=== PATIENT | female | born 1965 | race American Indian/Alaskan Native ===

== ENCOUNTER 2019-12-08 14:05 | Emergency (ER) | payer BC, SELFPAY ==
--- NOTE | 2019-12-08 14:26 | Event Note ---
ED Screening Note ED Screening Note: PMH CVA RECENT HTN DM METFORMIN LISINOPRIL METOPROLOL NO BLOOD THINNERS BS THIS AM 125 ATE BREAKFAST THEN FELL This initial assessment/diagnostic orders/clinical plan/treatment(s) is/are subject to change based on patients health status, clinical progression and re- assessment by fellow clinical providers in the ED. Further treatment and workup at subsequent clinical providers discretion. Patient/guardian urged not to elope from the ED as their condition may be serious if not clinically assessed and managed. Initial orders include: EVAL ACC
[2019-12-08 14:27] VITALS: BP 160/69
--- NOTE | 2019-12-08 16:33 | Cat Scan Report ---
CT head/brain wo con INDICATION / CLINICAL INFORMATION: 54 years Female; FALL. TECHNIQUE: Routine CT head without contrast. All CT scans at this location are performed using CT dos e reduction for ALARA by means of automated exposure control. COMPARISON: MRI - 10/04/2018 FINDINGS: BRAIN / INTRACRANIAL CONTENTS: Multiple areas of loss of tijerina/white differentiation are seen, which a ppear to be chronic in age, when compared with prior. The most prevalent finding seen in the anterior parietal lobe on the left, which also involves the posterior left frontal lobe more superiorly. Otherwise, no acute hemorrhage, mass effect, midline shift, hydrocephalus, or acute, large territori al infarct. Mild cerebral atrophy. There are moderate areas of decreased attenuation in the white matter of the cerebral hemispheres. Th adalberto are nonspecific findings and may be related to microangiopathy (hypertension, diabetes, atheroscl erosis), given the patient's age. It might be difficult to evaluate for small areas of ischemia witho ut diffusion imaging by MRI. CRANIOCERVICAL JUNCTION: No significant abnormality. ORBITS: No significant abnormality of visualized orbits. SINUSES / MASTOIDS: No significant abnormality the visualized paranasal sinuses or mastoid air cells. ADDITIONAL FINDINGS: Small subgaleal hematoma suggested in the right frontoparietal region. There are no signs of underlying calvarial fracture appreciated. Atherosclerotic disease is seen in the anterior and posterior circulation. IMPRESSION: 1. No focal mass, intracranial hemorrhage, hydrocephalus, or acute, large territorial infarct. Signer Name: Matthew Delong MD, III Signed: 12/08/2019 4:28 PM Workstation Name: [id number]
[2019-12-08] MEDS ORDERED: HYDROcodone/ACETAMINOPHEN 5-325 MG TAB PO ONE (16:44)
--- NOTE | 2019-12-08 16:44 | Emergency Department Report ---
ED Fall HPI - General Chief Complaint: Fall Stated Complaint: FALL Time Seen by Provider: 12/08/19 14:25 Source: patient Mode of arrival: Wheelchair - History of Present Illness Initial Comments: 54-year-old -[place]os[place] female patient with history of stroke, diabetes, and hypertension presents with complaints of his had a head injury and right arm pain after a fall x today. States she was knocked off balance when her dog jumped on her. She states she hit her head on the wall and fell onto her right arm. She denies any loss of consciousness, dizziness, slurred speech, vision changes, or nausea/vomiting. She has permanent right-sided weakness due to her previous stroke./10 in severity. She denies any chest pain or shortness of breath. Fall was witnessed by her daughter. Patient is on Plavix Complaint: fall Fall From: standing Fall Witnessed: yes, by family Place Fall Occurred: home - Related Data Home Medications Medication Instructions Recorded Confirmed Last Taken Aspirin EC [Halfprin EC] 81 mg PO QDAY 10/07/18 10/07/18 Unknown Gabapentin [Neurontin] 300 mg PO Q8HR 10/07/18 10/07/18 Unknown amLODIPine [Norvasc] 10 mg PO DAILY 10/07/18 10/07/18 Unknown metFORMIN [Glucophage] 500 mg PO BID 10/07/18 10/07/18 Unknown Previous Rx's Medication Instructions Recorded Last Taken Type Aspirin EC [Halfprin EC] 81 mg PO QDAY #30 tablet. 10/06/18 Unknown Rx Gabapentin 300 mg PO TID #90 10/06/18 Unknown Rx Pravastatin Sodium [Pravachol] 40 mg PO HS #30 tablet 10/06/18 Unknown Rx metFORMIN [Glucophage] 500 mg PO BID #60 tablet 10/06/18 Unknown Rx Aspirin EC [Halfprin EC] 81 mg PO QDAY #30 tablet 10/12/18 Unknown Rx AtorvaSTATin [Lipitor] 40 mg PO QHS #30 tablet 10/12/18 Unknown Rx Baclofen [Lioresal] 10 mg PO TID #30 tablet 10/12/18 Unknown Rx Clopidogrel [Plavix] 75 mg PO QDAY #30 tablet 10/12/18 Unknown Rx Diabetic Supplies,Miscell [Enlite 1 each MC BID #1 miscell 10/12/18 Unknown Rx Serter] Insulin NPH/Regular [NovoLIN 70/30] 15 unit SUB-Q BIDDIAB #1 vial 10/12/18 Unknown Rx Metoprolol Xl [Metoprolol 50 mg PO QDAY #30 tablet 10/12/18 Unknown Rx SUCCINATE ER TAB] lisinopriL [Zestril TAB] 5 mg PO QDAY #30 tablet 10/12/18 Unknown Rx Allergies Allergy/AdvReac Type Severity Reaction Status Date / Time No Known Allergies Allergy Verified 10/08/18 12:17 ED Review of Systems ROS: Stated complaint: FALL Other details as noted in HPI Comment: All other systems reviewed and negative Musculoskeletal: as per HPI Neurological: headache ED Past Medical Hx - Past Medical History Hx Hypertension: Yes Hx Congestive Heart Failure: No Hx Diabetes: Yes Hx Arthritis: Yes (RA) Hx Asthma: No Hx COPD: No Hx HIV: No Additional medical history: carpel tunnel,H/O FALLS- SORES ON BLL IN VARIOUS STAGES OF HEALING,OLD AND NEW - Social History Smoking Status: Never Smoker Substance Use Type: None - Medications Home Medications: Home Medications Medication Instructions Recorded Confirmed Last Taken Type Aspirin EC [Halfprin EC] 81 mg PO QDAY #30 tablet. 10/06/18 Unknown Rx Gabapentin 300 mg PO TID #90 10/06/18 Unknown Rx Pravastatin Sodium [Pravachol] 40 mg PO HS #30 tablet 10/06/18 Unknown Rx metFORMIN [Glucophage] 500 mg PO BID #60 tablet 10/06/18 Unknown Rx Aspirin EC [Halfprin EC] 81 mg PO QDAY 10/07/18 10/07/18 Unknown History Gabapentin [Neurontin] 300 mg PO Q8HR 10/07/18 10/07/18 Unknown History amLODIPine [Norvasc] 10 mg PO DAILY 10/07/18 10/07/18 Unknown History metFORMIN [Glucophage] 500 mg PO BID 10/07/18 10/07/18 Unknown History Aspirin EC [Halfprin EC] 81 mg PO QDAY #30 tablet 10/12/18 Unknown Rx AtorvaSTATin [Lipitor] 40 mg PO QHS #30 tablet 10/12/18 Unknown Rx Baclofen [Lioresal] 10 mg PO TID #30 tablet 10/12/18 Unknown Rx Clopidogrel [Plavix] 75 mg PO QDAY #30 tablet 10/12/18 Unknown Rx Diabetic Supplies,Miscell [Enlite 1 each MC BID #1 miscell 10/12/18 Unknown Rx Serter] Insulin NPH/Regular [NovoLIN 70/30] 15 unit SUB-Q BIDDIAB #1 vial 10/12/18 Unknown Rx Metoprolol Xl [Metoprolol 50 mg PO QDAY #30 tablet 10/12/18 Unknown Rx SUCCINATE ER TAB] lisinopriL [Zestril TAB] 5 mg PO QDAY #30 tablet 10/12/18 Unknown Rx ED Physical Exam - General Limitations: No Limitations General appearance: alert, in no apparent distress - Expanded Head Exam Expanded Head exam: Present: hematoma (on right side of forehead) - Eye Eye exam: Present: normal appearance, PERRL - Neck Neck exam: Present: normal inspection, full ROM. Absent: tenderness - Respiratory Respiratory exam: Present: normal lung sounds bilaterally. Absent: respiratory distress - Cardiovascular Cardiovascular Exam: Present: regular rate, normal rhythm. Absent: systolic murmur, diastolic murmur, rubs, gallop - GI/Abdominal GI/Abdominal exam: Present: soft. Absent: tenderness - Extremities Exam Extremities exam: Present: other (permanent right sided weakness due to stroke. Tenderness to palpation over distal humerus.). Absent: pedal edema - Back Exam Back exam: Present: normal inspection, full ROM. Absent: tenderness - Neurological Exam Neurological exam: Present: alert, oriented X3, normal gait - Psychiatric Psychiatric exam: Present: normal affect, normal mood - Skin Skin exam: Present: warm, dry, intact, normal color. Absent: rash, ecchymosis ED Course Vital Signs 12/08/19 12/08/19 14:26 15:21 Temperature 98.1 F Pulse Rate 70 Respiratory 20 17 Rate Blood Pressure 160/69 O2 Sat by Pulse 99 Oximetry ED Medical Decision Making - Radiology Data Radiology results: report reviewed CT head/brain wo con INDICATION / CLINICAL INFORMATION: 54 years Female; FALL. TECHNIQUE: Routine CT head without contrast. All CT scans at this location are performed using CT dose reduction for ALARA by means of automated exposure control. COMPARISON: MRI - 10/04/2018 FINDINGS: BRAIN / INTRACRANIAL CONTENTS: Multiple areas of loss of tijerina/white differentiation are seen, which appear to be chronic in age, when compared with prior. The most prevalent finding seen in the anterior parietal lobe on the left, which also involves the posterior left frontal lobe more superiorly. Otherwise, no acute hemorrhage, mass effect, midline shift, hydrocephalus, or acute, large territorial infarct. Mild cerebral atrophy. There are moderate areas of decreased attenuation in the white matter of the cerebral hemispheres. These are nonspecific findings and may be related to microangiopathy (hypertension, diabetes, atherosclerosis), given the patient's age. It might be difficult to evaluate for small areas of ischemia without diffusion imaging by MRI. CRANIOCERVICAL JUNCTION: No significant abnormality. ORBITS: No significant abnormality of visualized orbits. SINUSES / MASTOIDS: No significant abnormality the visualized paranasal sinuses or mastoid air cells. ADDITIONAL FINDINGS: Small subgaleal hematoma suggested in the right frontoparietal region. There are no signs of underlying calvarial fracture appreciated. Atherosclerotic disease is seen in the anterior and posterior circulation. IMPRESSION: 1. No focal mass, intracranial hemorrhage, hydrocephalus, or acute, large territorial infarct. - Medical Decision Making 54-year-old -[place] female patient with history of stroke, diabetes, and hypertension presents with complaints of his had a head injury and right arm pain after a fall x today. States she was knocked off balance when her dog jumped on her. CT head is negative for acute abnormalities. Vitals are stable. Humeral x-ray is negative. Patient has normal gait. Patient is stable for discharge home and follow-up with her primary care provider. Discussed monitoring patient closely for the next 24 hours and strict return precautions in detail with patient and patient's daughter who both state understanding. Critical care attestation.: If time is entered above; I have spent that time in minutes in the direct care of this critically ill patient, excluding procedure time. ED Disposition Clinical Impression: Contusion of bone Fall Qualifiers: Encounter type: initial encounter Qualified Code(s): W19.XXXA - Unspecified fall, initial encounter Head injury Qualifiers: Encounter type: initial encounter Qualified Code(s): S09.90XA - Unspecified injury of head, initial encounter Disposition: DC-01 TO HOME OR SELFCARE Is pt being admited?: No Condition: Stable Instructions: Fall Prevention for Older Adults (ED), Minor Head Injury (ED) Referrals: PRIMARY CARE, [Referring] - 3-5 Days
--- NOTE | 2019-12-08 17:20 | XRay Report ---
Right humerus-2 views INDICATION: distal humeral pain after fall. COMPARISON: None. IMPRESSION: The elbow/distal humeral epiphysis is not adequately evaluated with this technique. Othe rwise no acute fracture identified. Degenerative changes in the elbow and shoulder. Signer Name: Eleuterio Hoyos MD Signed: 12/08/2019 5:15 PM Workstation Name: [id number]
== END 2019-12-08 17:56 | disposition home or self-care (01) ==
LOC: ED 14:05
DX: S40.021A Contusion of right upper arm, initial encounter (principal); S00.83XA Contusion of other part of head, initial encounter; I10 Essential (primary) hypertension; E11.9 Type 2 diabetes mellitus without complications; Z79.899 Other long term (current) drug therapy; Z86.73 Personal history of transient ischemic attack (TIA), and cerebral infarction without residual deficits; W18.39XA Other fall on same level, initial encounter; Y93.89 Activity, other specified; Y92.89 Other specified places as the place of occurrence of the external cause; Y99.8 Other external cause status
CPT/HCPCS: 70450

== ENCOUNTER 2020-04-21 14:05 | Emergency (ER) | payer SELFPAY ==
[2020-04-21 14:46] VITALS: BP 177/78
--- NOTE | 2020-04-21 14:54 | Emergency Department Report ---
Chief Complaint: Dental/Oral Stated Complaint: TOOTHACHE PAIN Time Seen by Provider: 04/21/20 14:45 MSE screening note: Focused history and physical exam performed. Due to findings the following was ordered: ED Disposition for MSE Condition: Stable
--- NOTE | 2020-04-21 14:57 | Emergency Department Report ---
ED ENT HPI - General Chief complaint: Dental/Oral Stated complaint: TOOTHACHE PAIN Time Seen by Provider: 04/21/20 14:45 Source: patient Mode of arrival: Wheelchair Limitations: Physical Limitation - History of Present Illness Initial comments: pt is a 54 yo female who presents to the ED with c/o left lower dental pain that began yesterday. she states she saw a dentist about a year ago. she denies any fever or n/v/d. she states that she has had some swelling to the face. she denies any difficulty tolerating PO intake or secretions. PMHx CVA, DM no allergies to meds - Related Data Home Medications Medication Instructions Recorded Confirmed Last Taken Aspirin EC [Halfprin EC] 81 mg PO QDAY 10/07/18 10/07/18 Unknown Gabapentin [Neurontin] 300 mg PO Q8HR 10/07/18 10/07/18 Unknown amLODIPine [Norvasc] 10 mg PO DAILY 10/07/18 10/07/18 Unknown metFORMIN [Glucophage] 500 mg PO BID 10/07/18 10/07/18 Unknown Previous Rx's Medication Instructions Recorded Last Taken Type Aspirin EC [Halfprin EC] 81 mg PO QDAY #30 tablet. 10/06/18 Unknown Rx Gabapentin 300 mg PO TID #90 10/06/18 Unknown Rx Pravastatin Sodium [Pravachol] 40 mg PO HS #30 tablet 10/06/18 Unknown Rx metFORMIN [Glucophage] 500 mg PO BID #60 tablet 10/06/18 Unknown Rx Aspirin EC [Halfprin EC] 81 mg PO QDAY #30 tablet 10/12/18 Unknown Rx AtorvaSTATin [Lipitor] 40 mg PO QHS #30 tablet 10/12/18 Unknown Rx Baclofen [Lioresal] 10 mg PO TID #30 tablet 10/12/18 Unknown Rx Clopidogrel [Plavix] 75 mg PO QDAY #30 tablet 10/12/18 Unknown Rx Diabetic Supplies,Miscell [Enlite 1 each MC BID #1 miscell 10/12/18 Unknown Rx Serter] Insulin NPH/Regular [NovoLIN 70/30] 15 unit SUB-Q BIDDIAB #1 vial 10/12/18 Unknown Rx Metoprolol Xl [Metoprolol 50 mg PO QDAY #30 tablet 10/12/18 Unknown Rx SUCCINATE ER TAB] lisinopriL [Zestril TAB] 5 mg PO QDAY #30 tablet 10/12/18 Unknown Rx Acetaminophen [Tylenol] 650 mg PO Q8HR PRN #20 capsule 04/21/20 Unknown Rx Clindamycin [Clindamycin CAP] 450 mg PO TID 7 Days #63 capsule 04/21/20 Unknown Rx Allergies Allergy/AdvReac Type Severity Reaction Status Date / Time No Known Allergies Allergy Verified 10/08/18 12:17 ED Dental HPI - General Chief complaint: Dental/Oral Stated complaint: TOOTHACHE PAIN Time Seen by Provider: 04/21/20 14:45 Source: patient Mode of arrival: Wheelchair Limitations: Physical Limitation - Related Data Home Medications Medication Instructions Recorded Confirmed Last Taken Aspirin EC [Halfprin EC] 81 mg PO QDAY 10/07/18 10/07/18 Unknown Gabapentin [Neurontin] 300 mg PO Q8HR 10/07/18 10/07/18 Unknown amLODIPine [Norvasc] 10 mg PO DAILY 10/07/18 10/07/18 Unknown metFORMIN [Glucophage] 500 mg PO BID 10/07/18 10/07/18 Unknown Previous Rx's Medication Instructions Recorded Last Taken Type Aspirin EC [Halfprin EC] 81 mg PO QDAY #30 tablet. 10/06/18 Unknown Rx Gabapentin 300 mg PO TID #90 10/06/18 Unknown Rx Pravastatin Sodium [Pravachol] 40 mg PO HS #30 tablet 10/06/18 Unknown Rx metFORMIN [Glucophage] 500 mg PO BID #60 tablet 10/06/18 Unknown Rx Aspirin EC [Halfprin EC] 81 mg PO QDAY #30 tablet 10/12/18 Unknown Rx AtorvaSTATin [Lipitor] 40 mg PO QHS #30 tablet 10/12/18 Unknown Rx Baclofen [Lioresal] 10 mg PO TID #30 tablet 10/12/18 Unknown Rx Clopidogrel [Plavix] 75 mg PO QDAY #30 tablet 10/12/18 Unknown Rx Diabetic Supplies,Miscell [Enlite 1 each MC BID #1 miscell 10/12/18 Unknown Rx Serter] Insulin NPH/Regular [NovoLIN 70/30] 15 unit SUB-Q BIDDIAB #1 vial 10/12/18 Unknown Rx Metoprolol Xl [Metoprolol 50 mg PO QDAY #30 tablet 10/12/18 Unknown Rx SUCCINATE ER TAB] lisinopriL [Zestril TAB] 5 mg PO QDAY #30 tablet 10/12/18 Unknown Rx Acetaminophen [Tylenol] 650 mg PO Q8HR PRN #20 capsule 04/21/20 Unknown Rx Clindamycin [Clindamycin CAP] 450 mg PO TID 7 Days #63 capsule 04/21/20 Unknown Rx Allergies Allergy/AdvReac Type Severity Reaction Status Date / Time No Known Allergies Allergy Verified 10/08/18 12:17 ED Review of Systems ROS: Stated complaint: TOOTHACHE PAIN Other details as noted in HPI Comment: All other systems reviewed and negative ED Past Medical Hx - Past Medical History Previous Medical History?: Yes Hx Hypertension: Yes Hx Congestive Heart Failure: No Hx Diabetes: Yes Hx Arthritis: Yes (RA) Hx Asthma: No Hx COPD: No Hx HIV: No Additional medical history: carpel tunnel,H/O FALLS- SORES ON BLL IN VARIOUS STAGES OF HEALING,OLD AND NEW - Surgical History Past Surgical History?: No - Social History Smoking Status: Never Smoker Substance Use Type: Prescribed - Medications Home Medications: Home Medications Medication Instructions Recorded Confirmed Last Taken Type Aspirin EC [Halfprin EC] 81 mg PO QDAY #30 tablet. 10/06/18 Unknown Rx Gabapentin 300 mg PO TID #90 10/06/18 Unknown Rx Pravastatin Sodium [Pravachol] 40 mg PO HS #30 tablet 10/06/18 Unknown Rx metFORMIN [Glucophage] 500 mg PO BID #60 tablet 10/06/18 Unknown Rx Aspirin EC [Halfprin EC] 81 mg PO QDAY 10/07/18 10/07/18 Unknown History Gabapentin [Neurontin] 300 mg PO Q8HR 10/07/18 10/07/18 Unknown History amLODIPine [Norvasc] 10 mg PO DAILY 10/07/18 10/07/18 Unknown History metFORMIN [Glucophage] 500 mg PO BID 10/07/18 10/07/18 Unknown History Aspirin EC [Halfprin EC] 81 mg PO QDAY #30 tablet 10/12/18 Unknown Rx AtorvaSTATin [Lipitor] 40 mg PO QHS #30 tablet 10/12/18 Unknown Rx Baclofen [Lioresal] 10 mg PO TID #30 tablet 10/12/18 Unknown Rx Clopidogrel [Plavix] 75 mg PO QDAY #30 tablet 10/12/18 Unknown Rx Diabetic Supplies,Miscell [Enlite 1 each MC BID #1 miscell 10/12/18 Unknown Rx Serter] Insulin NPH/Regular [NovoLIN 70/30] 15 unit SUB-Q BIDDIAB #1 vial 10/12/18 Unknown Rx Metoprolol Xl [Metoprolol 50 mg PO QDAY #30 tablet 10/12/18 Unknown Rx SUCCINATE ER TAB] lisinopriL [Zestril TAB] 5 mg PO QDAY #30 tablet 10/12/18 Unknown Rx Acetaminophen [Tylenol] 650 mg PO Q8HR PRN #20 capsule 04/21/20 Unknown Rx Clindamycin [Clindamycin CAP] 450 mg PO TID 7 Days #63 capsule 04/21/20 Unknown Rx ED Physical Exam - General Limitations: Physical Limitation General appearance: alert, in no apparent distress - Head Head exam: Present: atraumatic, normocephalic - Eye Eye exam: Present: normal appearance - ENT ENT exam: Present: mucous membranes moist, other (poor dentition, several missing teeth, there is a cracked tooth present to the left lower jaw, there is an area of induration to the gumline adjacent to the cracked tooth, small amount of left lower facial swelling, uvula is midline, no uvular edema, no uvular deviation, no trismus, no tongue elevation, no muffled voice) - Neurological Exam Neurological exam: Present: alert, oriented X3 - Psychiatric Psychiatric exam: Present: normal affect, normal mood - Skin Skin exam: Present: warm, dry, intact ED Course Vital Signs 04/21/20 04/21/20 14:10 15:09 Temperature 97.8 F Pulse Rate 97 H Respiratory 18 18 Rate Blood Pressure 177/78 O2 Sat by Pulse 100 Oximetry ED Medical Decision Making - Medical Decision Making pt is a 54 yo female who presents to the ED with c/o left lower dental pain that began yesterday. she states she saw a dentist about a year ago. she denies any fever or n/v/d. she states that she has had some swelling to the face. she denies any difficulty tolerating PO intake or secretions. PMHx CVA, DM no allergies to meds. Vitals are stable. On exam:poor dentition, several missing teeth, there is a cracked tooth present to the left lower jaw, there is an area of induration to the gumline adjacent to the cracked tooth, small amount of left lower facial swelling, uvula is midline, no uvular edema, no uvular deviation, no trismus, no tongue elevation, no muffled voice. Examination consistent with dental caries and dental abscess. Patient given prescription for clindamycin and Tylenol. Advised patient please take medication as prescribed. increase your water intake. follow up with a dentist in the next 3-5 days. when you call the dental tell them you had a dental abscess and need to be seen. it is very important that you follow up with a dentist. return to the emergency room for any new or worsening symptoms Critical care attestation.: If time is entered above; I have spent that time in minutes in the direct care of this critically ill patient, excluding procedure time. ED Disposition Clinical Impression: Dental abscess, Dental caries Disposition: TO HOME OR SELFCARE Is pt being admited?: No Does the pt Need Aspirin: No Condition: Stable Instructions: Dental Abscess (ED), Dental Caries (ED) Additional Instructions: please take medication as prescribed. increase your water intake. follow up with a dentist in the next 3-5 days. when you call the dental tell them you had a dental abscess and need to be seen. it is very important that you follow up with a dentist. return to the emergency room for any new or worsening symptoms. Prescriptions: Clindamycin [Clindamycin CAP] 450 mg PO TID 7 Days #63 capsule Acetaminophen [Tylenol] 650 mg PO Q8HR PRN #20 capsule PRN Reason: pain Referrals: [facility] [Outside] - 3-5 Days [facility] [Outside] - 3-5 Days Time of Disposition: 14:55 Print Language: [place]
== END 2020-04-21 15:16 | disposition home or self-care (01) ==
LOC: ED 14:05
DX: K02.9 Dental caries, unspecified (principal); K04.7 Periapical abscess without sinus; I10 Essential (primary) hypertension; E11.9 Type 2 diabetes mellitus without complications; M19.90 Unspecified osteoarthritis, unspecified site; Z79.899 Other long term (current) drug therapy
CPT/HCPCS: 99282